=== PATIENT | male | born 1975 | race Caucasian/White ===

== ENCOUNTER 2021-09-03 04:52 | Emergency (ER) | payer MEDICARE ==
--- NOTE | 2021-09-03 05:36 | EDM.PDOC ---
<Pito Humphrey - Last Filed: 09/03/21 09:24> ED HPI GENERAL MEDICAL PROBLEM - General Chief Complaint: Respiratory Problem Stated Complaint: COVID SYMPTOMS Time Seen by Provider: 09/03/21 05:20 - Related Data Allergies Allergy/AdvReac Type Severity Reaction Status Date / Time No Known Allergies Allergy Verified 09/03/21 05:08 Home Meds: Home Meds Losartan Potassium 100 mg PO DAILY 09/03/21 [History] Sertraline HCl 100 mg PO DAILY 09/03/21 [History] Simvastatin 20 mg PO DAILY 09/03/21 [History] dexAMETHasone [Dexamethasone] 6 mg PO DAILY #5 tablet 09/03/21 [Rx] Course - Re-Assessments/Exams Free Text/Narrative Re-Assessment/Exam: 09/03/21 09:26 Patient CTA was negative for PE he is got diffuse lung changes consistent with Covid pneumonia. The patient sats well especially in the prone position on 4 L. We have absolutely no hospital beds available there is none available in the region. At this point will discharge on home O2 4 L per nasal cannula encouraged to stay in the prone position as much as tolerated return to the emergency room if getting worse Departure - Departure Time of Disposition: 09:35 Disposition: Home, Self-Care 01 Clinical Impression: Pneumonia due to COVID-19 virus - Discharge Information Prescriptions: dexAMETHasone [Dexamethasone] 6 mg PO DAILY #5 tablet Instructions: 10 Things You Can Do to Manage Your COVID-19 Symptoms at Home - [facility] (05/31/2021) Referrals: Aleksandra Manzanares, BANK CONSULTANT [Primary Care Provider] - Forms: ED Department Discharge Additional Instructions: Return to the emergency room with any questions problems or worsening symptoms. A couple of times a day check his pulse oximetry. This is the measurement for his oxygen and his blood. Spend 16 hours minimum in the prone position, laying on his stomach preferably longer each day. He has been started on dexamethasone 6 mg daily his first dose was given here in the emergency room I sent an electronic prescription to estefani Murphy for the next 5 days. His spleen seems enlarged on the chest CT scan he had done today follow-up in the clinic to discuss this with his regular healthcare provider. Social isolation after he has been symptom-free for 4 days without the aid of any medication or supplements <Jimmy Maddox - Last Filed: 09/03/21 19:28> ED HPI GENERAL MEDICAL PROBLEM - General Source of Information: Reports: Patient, Family - History of Present Illness INITIAL COMMENTS - FREE TEXT/NARRATIVE: Patient is a 45-year-old male with history of cerebral palsy presenting with a chief complaint of cough, difficulty breathing and fatigue. Patient is unvaccinated against COVID-19. Duration of symptoms has been for 2 weeks. Patient reports getting worse today where he is feeling increasingly short of breath. The cough is been mild and nonproductive. Patient reports minimal pain in his left lower chest. Has had associated diarrhea but no vomiting. No abdominal pain. Nothing seems to make symptoms better or worse. Past Medical History HEENT History: Reports: Impaired Vision Other HEENT History: Wears glasses Cardiovascular History: Reports: High Cholesterol, Hypertension Social & Family History - Tobacco Use Tobacco Use Status *Q: Never Tobacco User ED ROS GENERAL - Review of Systems Review Of Systems: See Below Free Text/Narrative/Comment: In addition to that documented in the HPI above, the additional ROS was obtained: Constitutional: Per HPI Eyes: Denies vision changes ENMT: Denies sore throat CV: Denies chest pain Resp: Per HPI GI: Per HPI : Denies painful urination MSK: Denies recent trauma Skin: Denies new rashes Neuro: Denies new numbness or tingling or weakness Endocrine: Denies unexpected weight loss Heme: Denies bleeding disorders ED EXAM, GENERAL - Physical Exam Exam: See Below Free Text/Narrative:: I have reviewed the triage vital signs. On room air, patient demonstrating 86% pulse oxygenation indicating inadequate oxygenation. Const: Well nourished, well developed, appears stated age Eyes: Pupils Equal and reactive to light bilaterally, no conjunctival injection HENT: No signs of trauma or swelling, Neck supple without meningismus CV: Mild tachycardia with regular rhythm, Warm, well-perfused extremities RESP: Unlabored respiratory effort GI: soft, non-tender, non-distended, no masses MSK: No gross deformities appreciated Skin: Warm, dry. No rashes Neuro: Alert, criminal justice program director II-XII grossly intact. Sensation and motor function of extremities grossly intact. Psych: Appropriate mood and affect. Course - Vital Signs Last Recorded V/S: Last Vital Signs Temp 36.8 C 09/03/21 08:31 Pulse 96 09/03/21 08:31 Resp 16 09/03/21 08:31 BP 122/75 09/03/21 08:31 Pulse Ox 90 L 09/03/21 08:31 - Orders/Labs/Meds Labs: Laboratory Tests 09/03/21 09/03/21 09/03/21 Range/Units 05:15 05:47 05:47 WBC 4.33 (4.23-9.07) K/mm3 RBC 4.60 L (4.63-6.08) M/mm3 Hgb 13.2 L D (13.7-17.5) gm/dl Hct 38.2 L (40.1-51.0) % MCV 83.0 D (79.0-92.2) fl MCH 28.7 (25.7-32.2) pg MCHC 34.6 (32.2-35.5) g/dl RDW Std Deviation 42.6 (35.1-43.9) fL Plt Count 148 L (163-337) K/mm3 MPV 9.7 (9.4-12.3) fl Neut % (Auto) 75.8 H (34.0-67.9) % Lymph % (Auto) 12.7 L (21.8-53.1) % [place] % (Auto) 9.9 (5.3-12.2) % Eos % (Auto) 0 L (0.8-7.0) Baso % (Auto) 0.0 L (0.1-1.2) % Neut # (Auto) 3.28 (1.78-5.38) K/mm3 Lymph # (Auto) 0.55 L (1.32-3.57) K/mm3 [place] # (Auto) 0.43 (0.30-0.82) K/mm3 Eos # (Auto) 0.00 L (0.04-0.54) K/mm3 Baso # (Auto) 0.00 L (0.01-0.08) K/mm3 D-Dimer, Quantitative 2.50 H (0.19-0.50) mg/L Sodium (136-145) mEq/L Potassium (3.5-5.1) mEq/L Chloride (98-107) mEq/L Carbon Dioxide (21-32) mEq/L Anion Gap (5-15) BUN (7-18) mg/dL Creatinine (0.7-1.3) mg/dL Est Cr Clr Drug Dosing mL/min Estimated GFR (MDRD) (>60) mL/min BUN/Creatinine Ratio (14-18) Glucose (70-99) mg/dL Calcium (8.5-10.1) mg/dL Total Bilirubin (0.2-1.0) mg/dL AST (15-37) U/L ALT (16-63) U/L Alkaline Phosphatase (46-116) U/L C-Reactive Protein (<1.0) mg/dL Total Protein (6.4-8.2) g/dl Albumin (3.4-5.0) g/dl Globulin gm/dL Albumin/Globulin Ratio (1-2) SARS-CoV-2 RNA ([place]) Positive H (NEGATIVE) 09/03/21 Range/Units 05:47 WBC (4.23-9.07) K/mm3 RBC (4.63-6.08) M/mm3 Hgb (13.7-17.5) gm/dl Hct (40.1-51.0) % MCV (79.0-92.2) fl MCH (25.7-32.2) pg MCHC (32.2-35.5) g/dl RDW Std Deviation (35.1-43.9) fL Plt Count (163-337) K/mm3 MPV (9.4-12.3) fl Neut % (Auto) (34.0-67.9) % Lymph % (Auto) (21.8-53.1) % [place] % (Auto) (5.3-12.2) % Eos % (Auto) (0.8-7.0) Baso % (Auto) (0.1-1.2) % Neut # (Auto) (1.78-5.38) K/mm3 Lymph # (Auto) (1.32-3.57) K/mm3 [place] # (Auto) (0.30-0.82) K/mm3 Eos # (Auto) (0.04-0.54) K/mm3 Baso # (Auto) (0.01-0.08) K/mm3 D-Dimer, Quantitative (0.19-0.50) mg/L Sodium 136 (136-145) mEq/L Potassium 3.3 L (3.5-5.1) mEq/L Chloride 99 (98-107) mEq/L Carbon Dioxide 23 (21-32) mEq/L Anion Gap 17.3 H (5-15) BUN 16 (7-18) mg/dL Creatinine 1.4 H (0.7-1.3) mg/dL Est Cr Clr Drug Dosing 70.22 mL/min Estimated GFR (MDRD) 55 (>60) mL/min BUN/Creatinine Ratio 11.4 L (14-18) Glucose 120 H (70-99) mg/dL Calcium 7.7 L D (8.5-10.1) mg/dL Total Bilirubin 1.1 H (0.2-1.0) mg/dL AST 54 H (15-37) U/L ALT 37 (16-63) U/L Alkaline Phosphatase 57 (46-116) U/L C-Reactive Protein 7.6 H* (<1.0) mg/dL Total Protein 5.5 L (6.4-8.2) g/dl Albumin 3.3 L (3.4-5.0) g/dl Globulin 2.2 gm/dL Albumin/Globulin Ratio 1.5 (1-2) SARS-CoV-2 RNA ([place]) (NEGATIVE) Meds: Medications Discontinued Medications Generic Name Dose Route Start Last Admin Trade Name Freq PRN Reason Stop Dose Admin Dexamethasone 6 mg 09/03/21 09:14 Dexamethasone 4 Mg Tab PO 09/03/21 09:15 ONETIME ONE Sodium Chloride 100 mls @ 4 mls/sec 09/03/21 07:23 Normal Saline IV 09/03/21 07:24 ONETIME ONE Iopamidol 100 ml 09/03/21 07:23 09/03/21 07:24 Iopamidol 755 Mg/Ml 100 Ml Bottle IVPUSH 09/03/21 07:24 100 ml ONETIME ONE Administration Sodium Chloride 10 ml 09/03/21 07:23 09/03/21 07:24 Sodium Chloride 0.9% 10 Ml Syringe FLUSH 10 ml ONETIME PRN Administration IV Flush Sepsis Event Note (ED) - Evaluation Sepsis Screening Result: No Definite Risk - Focused Exam Vital Signs: Vital Signs Temp Pulse Resp BP Pulse Ox 09/03/21 08:31 36.8 C 96 16 122/75 90 L - Assessment/Plan Assessment:: Pt is a 45 yo M with COVID. Pt initially hypoxic, but responded well to Oxygen via NC. Pt received dexamethasone in the ER and underwent testing to R/O pulmonary embolism. Pt labs reviewed and did not demonstrate any siginficant abnormalities besides elevated d-dimer. Pt will be signed out to Dr. Humphrey at routine shift change to follow up PE study.
--- NOTE | 2021-09-03 07:08 | CR ---
Chest: Frontal view of the chest was obtained. Comparison: No prior chest imaging is available. Patchy areas of increased density are seen on both sides of the chest. Heart size and mediastinum are normal. Slight scoliosis is noted within the spine. Impression: 1. Findings which are felt compatible with fairly severe bilateral COVID pneumonia. Diagnostic code #3
[2021-09-03] MEDS ORDERED: Iopamidol 755 Mg/ML 100 ML Bottle IVPUSH ONE (07:23)
[2021-09-03] MEDS ORDERED: Sodium Chloride 0.9% 10 ML Syringe FLUSH PRN (07:23)
[2021-09-03] MEDS ORDERED: Sodium Chloride 0.9% 100 ML IV ONE (07:23)
--- NOTE | 2021-09-03 07:35 | CT ---
CT chest Technique: Multiple axial sections were obtained from above the lung apices inferiorly through the lung bases. Intravenous contrast was utilized. Study has been performed as a pulmonary angiogram protocol. Comparison: No prior chest CT is available, prior chest x-ray performed earlier on the same date (5:34 AM). Findings: Pulmonary arteries are fairly well opacified. No filling defects are seen to indicate pulmonary embolism. Thoracic aorta shows no aneurysm. No adenopathy is seen within the chest. No axillary adenopathy is seen. No pericardial thickening is seen. Visualized upper abdominal structures show a markedly enlarged spleen which is not completely included on the exam. No additional abnormality is seen within the visualized abdomen. Diffuse parenchymal densities are seen throughout both lungs. Bone window settings were reviewed which show no acute osseous abnormality. Impression: 1. No findings of pulmonary embolism. 2. Markedly enlarged spleen which is nonspecific and not completely included on this exam. 3. Diffuse parenchymal densities within both sides of the chest compatible with severe COVID pneumonia. Diagnostic code #3
[2021-09-03] MEDS ORDERED: Dexamethasone 4 MG Tab PO ONE (09:14)
== END 2021-09-03 10:47 | disposition home or self-care (01) ==
LOC: JD.ED 04:52
DX: U07.1 COVID-19 (principal); J12.82 Pneumonia due to coronavirus disease 2019; E78.00 Pure hypercholesterolemia, unspecified; I10 Essential (primary) hypertension; Z79.899 Other long term (current) drug therapy
CPT/HCPCS: 36415; 71045; 71275; 80053; 85025; 85379; 86140; 87804; 99285; Q9967; U0002

== ENCOUNTER 2024-11-22 14:22 | Emergency (ER) | payer MEDICARE ==
[2024-11-22] MEDS ORDERED: Sodium Chloride 0.9% 10 ML Syringe FLUSH PRN (14:41)
[2024-11-22 15:19] LABS: D-DIMER QUANTITATIVE 0.26 mg/L (0.19-0.50); INR 1.06; PROTHROMBIN TIME 11.2 SECONDS (9.7-12.0)
[2024-11-22 15:20] LABS: PTT,PARTIAL THROMBOPLSTIN TIME 29.9 SECONDS (21.7-31.4)
[2024-11-22 15:24] LABS: BASOPHILS PERCENT AUTO 0.2 % (0.0-1.0); EOSINOPHILS PERCENT AUTO 0.4 % (0.0-6.0); HEMATOCRIT 41.2 % (42.0-52.0); IMMATURE GRAN ABSOLUTE AUTO 0.12 K/mm3 (0.00-0.05); IMMATURE GRAN PERCENT AUTO 1.4 % (0.0-0.4); LYMPHOCYTES ABSOLUTE AUTO 1.4 K/mm3 (1.0-4.8); LYMPHOCYTES PERCENT AUTO 16.5 % (24.0-44.0); MEAN CORPUSCULAR HEMOGLOBIN 29.7 pg (28.0-32.0); MEAN CORPUSCULAR VOLUME 84.9 fl (83.0-99.0); MEAN PLATELET VOLUME 10.5 fl (9.4-12.4); MONOCYTES ABSOLUTE AUTO 0.5 K/mm3 (0.0-0.8); MONOCYTES PERCENT AUTO 6.1 % (0.0-8.0); NEUTROPHILS ABSOLUTE AUTO 6.4 K/mm3 (1.8-7.7); NEUTROPHILS PERCENT AUTO 75.4 % (41.0-71.0); PLATELET COUNT,PLT 166 K/mm3 (150-400); RED BLOOD CELL COUNT 4.85 M/mm3 (4.52-5.90); WHITE BLOOD CELL COUNT,WBC 8.51 K/mm3 (3.9-11.3)
[2024-11-22 15:26] LABS: HEMOGLOBIN 14.4 gm/dl (14.0-18.0)
[2024-11-22 15:30] LABS: A/G RATIO 1.8 (1-2); ALANINE AMINOTRANSFERASE,ALT 28 U/L (16-63); ALBUMIN 4.4 g/dl (3.4-5.0); ALKALINE PHOSPHATASE 114 U/L (46-116); ASPARTATE AMNIOTRANSFERASE,AST 16 U/L (15-37); BILIRUBIN TOTAL 1.9 mg/dL (0.2-1.0); BLOOD UREA NITROGEN,BUN 23 mg/dL (7-18); BUN/CREATININE RATIO 19.2 (14-18); C-REACTIVE PROTEIN 0.36 mg/dL (<0.30); CALCIUM 9.3 mg/dL (8.5-10.1); CARBON DIOXIDE,CO2 27 mEq/L (21-32); CHLORIDE,CL 103 mEq/L (98-107); CREATININE 1.2 mg/dL (0.7-1.3); EST CRCL DRUG DOSING (CG) 76.04 mL/min; ESTIMATED GFR 74 mL/min (>60); GLUCOSE RANDOM 120 mg/dL (70-99); MAGNESIUM 2.2 mg/dL (1.8-2.4); PROTEIN TOTAL,TP 6.9 g/dl (6.4-8.2); SODIUM,NA 141 mEq/L (136-145)
[2024-11-22 16:00] LABS: TROPONIN I HIGH SENSITIVITY < 4 pg/mL (<=76)
== END 2024-11-22 16:50 | disposition home or self-care (01) ==
LOC: JD.ED 14:22
DX: R06.02 Shortness of breath (principal); R20.2 Paresthesia of skin; I10 Essential (primary) hypertension; E78.00 Pure hypercholesterolemia, unspecified; Z86.16 Personal history of COVID-19; Z79.899 Other long term (current) drug therapy
CPT/HCPCS: 36415; 71045; 71045-26; 80053; 83735; 83880; 84484; 85025; 85379; 85610; 85730; 86140; 87428-QW; 93005; 99285